=== PATIENT | female | born 1955 | race American Indian/Alaskan Native ===

== ENCOUNTER 2017-02-23 09:23 | Observation (INO) | payer OTHER ==
--- NOTE | 2017-02-23 10:58 | ED PDOC ---
HPI: General Adult Time Seen by Provider: 02/23/17 09:59 Chief Complaint (Nursing): Back Pain Chief Complaint (Provider): left chest pain History Per: Patient History/Exam Limitations: no limitations Onset/Duration Of Symptoms: Days (1), Gradual Current Symptoms Are (Timing): Still Present Severity: Moderate Location Of Discomfort (Image): 1 - ache Quality: "ache" Recent Trauma: none Additional Complaint(s): 61yo female presents c/o left sided chest/breast pain radiating to left neck, shoulder and back. Started last night, took ASA without relief. Denies associated symptoms of SOB, dizziness, headache or syncope. Denies prior cardiac problems, states has not has a stress test. Past Medical History Reviewed: Historical Data, Nursing Documentation, Vital Signs Vital Signs: Last Vital Signs Temp 97.7 F 02/23/17 12:35 Pulse 63 02/23/17 12:35 Resp 16 02/23/17 12:35 BP 137/86 02/23/17 12:35 Pulse Ox 98 02/23/17 12:35 - Medical History PMH: HTN, Hypercholesterolemia - Surgical History Surgical History: Other surgeries: hysterectomy - Family History Family History: States: Unknown Family Hx - Living Arrangements Living Arrangements: With Family - Social History Current smoker - smoking cessation education provided: No - Home Medications Home Medications: Ambulatory Orders Medication Instructions Recorded Atenolol/Chlorthalidone 1 tab PO DAILY 03/27/15 [Atenolol/Chlorthalidone 50 mg-25 mg] Atorvastatin [Lipitor] 10 mg PO DAILY 03/27/15 Albuterol HFA [Ventolin HFA 90 3 puff INH BID 02/23/17 mcg/actuation (8 g)] amLODIPine [Norvasc] 10 mg PO DAILY 02/23/17 - Allergies Allergies/Adverse Reactions: Allergies Allergy/AdvReac Type Severity Reaction Status Date / Time No Known Allergies Allergy Verified 02/23/17 09:53 Review of Systems ROS Statement: Except As Marked, All Systems Reviewed And Found Negative Constitutional: Negative for: Fever, Chills ENT: Negative for: Ear Discharge, Nose Pain Cardiovascular: Positive for: Chest Pain. Negative for: Palpitations, Orthopnea , Edema, Light Headedness Respiratory: Negative for: Cough, Shortness of Breath Gastrointestinal: Negative for: Nausea, Vomiting Genitourinary Female: Negative for: Dysuria, Frequency Musculoskeletal: Positive for: Neck Pain, Shoulder Pain, Back Pain. Negative for: Arm Pain, Hand Pain, Leg Pain Skin: Negative for: Rash, Lesions, Jaundice Neurological: Negative for: Weakness, Numbness, Confusion, Headache Psych: Negative for: Anxiety Physical Exam - Reviewed Nursing Documentation Reviewed: Yes Vital Signs Reviewed: Yes - Physical Exam Appears: Positive for: Well, Non-toxic, No Acute Distress Head Exam: Positive for: ATRAUMATIC, NORMAL INSPECTION, NORMOCEPHALIC Skin: Positive for: Normal Color, Warm, DRY Eye Exam: Positive for: EOMI, Normal appearance, PERRL ENT: Positive for: Normal ENT Inspection Neck: Positive for: Normal, Painless ROM Cardiovascular/Chest: Positive for: Regular Rate, Rhythm Respiratory: Positive for: CNT, Normal Breath Sounds Gastrointestinal/Abdominal: Positive for: Normal Exam, Bowel Sounds, Soft Back: Positive for: Normal Inspection Extremity: Positive for: Normal ROM Neurologic/Psych: Positive for: Alert, Oriented - Laboratory Results Result Diagrams: 02/23/17 11:18 02/23/17 11:18 - ECG ECG: Positive for: Interpreted By Me ECG Rhythm: Positive for: Sinus Rhythm, Nonspecific Changes Interpretation Of ECG: low voltages Rate: 62 O2 Sat by Pulse Oximetry: 98 Pulse Ox Interpretation: Normal - Radiology X-Ray: Read By Radiologist X-Ray Interpretation: COPD, Other (CM) Medical Decision Making Medical Decision Making: Workup initiated for atypical chest pain in obese postmenopausal female with HTN and dyslipidemia. Refused ASA as she took at home this morning. labs reviewed, mild hypokalemia, K+ replaced. trop neg Given CXR findings of CM, atypical symptoms in female w multiple risk factors for CAD, admit tele obs Dr Méndez covering Dr Elijah Villegas Disposition - Clinical Impression Clinical Impression: Chest pain - Patient ED Disposition Is Patient to be Admitted: Yes Counseled Patient/Family Regarding: Studies Performed, Need For Followup - Disposition Disposition Time: 12:45 Condition: STABLE - Pt Status Changed To: Hospital Disposition Of: Observation - POA Present On Arrival: None
--- NOTE | 2017-02-23 11:24 | RAD ---
HISTORY: Chest pain COMPARISON: No prior. FINDINGS: LUNGS: The lungs are hyperinflated and there is peribronchial thickening with chronic changes in both lungs. There is no focal consolidation. PLEURA: No significant pleural effusion identified, no pneumothorax apparent. CARDIOVASCULAR: Normal. OSSEOUS STRUCTURES: No significant abnormalities. VISUALIZED UPPER ABDOMEN: Normal. OTHER FINDINGS: None. IMPRESSION: No active pulmonary disease. COPD.
[2017-02-23 11:30] LABS: BASO % 0.5 % (0.0-2.0); EOS # 0.3 K/uL (0.0-0.7); EOS % 4.4 % (0.0-4.0); HEMATOCRIT 39.3 % (34.0-47.0); LYMPH # 2.8 K/uL (1.0-4.3); LYMPH % 36.8 % (20.0-40.0); MEAN CELL VOLUME 90.4 fl (81.0-99.0); MEAN CORPUSCULAR HEMOGLOBIN 30.5 pg (27.0-31.0); MEAN CORPUSCULAR HGB CONC 33.7 g/dL (33.0-37.0); MEAN PLATELET VOLUME 9.7 fl (7.2-11.7); MONO # 0.5 K/uL (0.0-0.8); MONO % 6.8 % (0.0-10.0); NEUT % 51.5 % (50.0-75.0); NRBC % 0.1 % (0.0-0.0); RED CELL DISTRIBUTION WIDTH 13.4 % (11.5-14.5); WHITE BLOOD COUNT 7.7 K/uL (4.8-10.8)
[2017-02-23 11:44] LABS: PARTIAL THROMBOPLASTIN TIME 28.9 SECONDS (23.3-32.5)
[2017-02-23 11:53] LABS: CHLORIDE 97 mmol/L (98-107); POTASSIUM 3.1 MMOL/L (3.6-5.0); SODIUM 140 mmol/l (132-148)
[2017-02-23 11:56] LABS: ALKALINE PHOSPHATASE 61 U/L (38-126); ALT/SGPT 18 U/L (9-52); AST/SGOT 27 U/L (14-36); BILIRUBIN,TOTAL 0.8 mg/dl (0.2-1.3); BLOOD UREA NITROGEN 16 mg/dl (7-17); CALCIUM 9.1 mg/dL (8.4-10.2); CARBON DIOXIDE 34 mmol/L (22-30); GFR AFRICAN-AMERICAN > 60; GLUCOSE,RANDOM 125 mg/dL (65-105); TOTAL PROTEIN 7.4 G/DL (6.3-8.2)
[2017-02-23] MEDS ORDERED: Potassium Chloride 20 mEq ER Tab PO ONE ×2 (12:51→13:45)
--- NOTE | 2017-02-23 17:26 | CP.PCM.HP ---
History of Present Illness - History of Present Illness History of Present Illness: 61F p/w acute onset LEFT posterior back pain that radiated to base of neck and into LEFT arm since last night. Pt states it began after lifting heavy bag from neighbor's house 4/5 in the evening, she took aspirin with good pain relief and denies any associated SOB, nausea, dizziness, chest pain, diaphoresis. She was able to sleep but was concerned this morning that the pain "was back" again without any other associated symptoms. She denies any viral prodrome symptoms of cough, sore throat, sick contacts, fevers, chills, or diarrhea. In addition, denies decreasing exercise tolerance, orthopnea, change in lower extremity swelling Of note, she has had PCI in the past ~2000 - 2001, with negative findings. PMD: Dr Ko PMH: HTN, HLD, BENJAMÍN, Morbid Obesity PSH: AZEEM, C-sxn x2, LEFT knee ALL: None Meds: Please see Med Rec Present on Admission - Present on Admission Any Indicators Present on Admission: No Review of Systems - Review of Systems Review of Systems: As per HPI Past Patient History - Past Social History Smoking Status: Former Smoker - CARDIAC Hx Cardiac Disorders: Yes (HTN) - PSYCHIATRIC Hx Substance Use: No - SURGICAL HISTORY Hx Section: Yes (x2) Hx Hysterectomy: Yes (total) Other/Comment: Right knee surgery (arthroscopy). left leg sx. - ANESTHESIA Hx Anesthesia: Yes Hx Anesthesia Reactions: No Meds Allergies/Adverse Reactions: Allergies Allergy/AdvReac Type Severity Reaction Status Date / Time No Known Allergies Allergy Verified 02/23/17 09:53 Physical Exam - Constitutional Appears: Well, Non-toxic, No Acute Distress - Head Exam Head Exam: ATRAUMATIC, NORMAL INSPECTION - Eye Exam Eye Exam: EOMI, Normal appearance - ENT Exam ENT Exam: Mucous Membranes Moist, Normal Exam - Neck Exam Neck exam: Positive for: Full Rom, Normal Inspection. Negative for: Lymphadenopathy - Respiratory Exam Respiratory Exam: Clear to Auscultation Bilateral, NORMAL BREATHING PATTERN. absent: Wheezes - Cardiovascular Exam Cardiovascular Exam: REGULAR RHYTHM. absent: JVD - GI/Abdominal Exam GI & Abdominal Exam: Normal Bowel Sounds, Soft. absent: Tenderness - Extremities Exam Extremities exam: Positive for: normal capillary refill, pedal pulses present. Negative for: calf tenderness - Back Exam Back exam: paraspinal tenderness (At LEFT upper back when palpated across trapezius c/w mild muscle spasm) - Neurological Exam Neurological exam: Alert, Oriented x3 - Psychiatric Exam Psychiatric exam: Normal Affect, Normal Mood - Skin Skin Exam: Normal Color, Warm Results - Vital Signs Recent Vital Signs: Last Vital Signs Temp 36.5 C 02/23/17 16:08 Pulse 68 02/23/17 16:08 Resp 20 02/23/17 16:08 BP 172/85 H 02/23/17 16:08 Pulse Ox 99 02/23/17 16:08 - Labs Result Diagrams: 02/23/17 11:18 02/23/17 19:00 Assessment & Plan (1) Chest pain Assessment and Plan: Rule out ACS, but history and symptoms most c/w MSK vs atypical chest pain. EKG w/o acute changes, Troponins negative thus far. - Serial Troponins - ASA 81mg, PO, Daily - CXR 2-view in AM - c/w Statin - c/w BP medications - Echo results: Nml LV function, EF: 65-70%, LEFT atrium mild dilated, trace MR , mild TR - Repeat Potassium - Heart Healthy Diet Status: Acute (2) Hypokalemia Assessment and Plan: Likely secondary to diuretic. - Repeat 3.4 - KCl, 40mEQ, soln, x1 - Rpt in AM Status: Acute (3) DVT prophylaxis Assessment and Plan: Risk: 5 Lovenox 40mg, SC, qHS Status: Acute (4) Hypertension Assessment and Plan: c/w home medications Status: Chronic (5) Hypercholesteremia Assessment and Plan: c/w home medications Status: Chronic (6) Morbidly obese Assessment and Plan: Patient counseled on effect of weight for cardiovascular and respiratory function. - Increase Lovenox Status: Chronic (7) BENJAMÍN (obstructive sleep apnea) Assessment and Plan: Does not use CPAP. Status: Chronic
[2017-02-23] MEDS: Albuterol HFA 90 mcg/actuation (8 g) INH SCH (18:20)
--- NOTE | 2017-02-23 18:47 | CARD ---
APPROVED REPORT EXAM: Two-dimensional and M-mode echocardiogram with Doppler and color Doppler. Other Information Quality : GoodRhythm : NSR Technically limited study due to body habitus. INDICATION Cardiomegaly 2D DIMENSIONS IVSd1.26 (0.7-1.1cm)LVDd4.43 (3.9-5.9cm) LVOT Diameter2.13 (1.8-2.4cm)PWd0.80 (0.7-1.1cm) IVSs1.67 (0.8-1.2cm)LVDs2.78 (2.5-4.0cm) FS (%) 37.3 %PWs1.61 (0.8-1.2cm) M-Mode DIMENSIONS Left Atrium (MM)5.17 (2.5-4.0cm)IVSd0.93 (0.7-1.1cm) Aortic Root2.97 (2.2-3.7cm)LVDd6.25 (4.0-5.6cm) Aortic Cusp Exc.2.28 (1.5-2.0cm)PWd0.85 (0.7-1.1cm) IVSs1.93 cmFS (%) 56 % LVDs2.74 (2.0-3.8cm)PWs1.43 cm Mitral Valve MV E Uocjsaet01.8cm/sMV DECEL [id number] A Qzzqyjit72.0cm/s MV NJB13xwG/A ratio1.0MVA (PHT)3.66cm2 TDI E/Lateral E'0.0E/Medial E'0.0 LEFT VENTRICLE The left ventricle is normal size. There is normal left ventricular wall thickness. The left ventricular function is normal. The left ventricular ejection fraction is - 65-70%.. There is normal LV segmental wall motion. Transmitral Doppler flow pattern is abnormal. No left ventricle thrombus noted on this study. There is no ventricular septal defect visualized. There is no left ventricular aneurysm. There is no mass noted in the left ventricle. RIGHT VENTRICLE The right ventricle is normal size. There is normal right ventricular wall thickness. The right ventricular systolic function is normal. ATRIA The left atrium is mildly dilated. There is no thrombus suspected in the left atrium. The right atrium size is normal. The interatrial septum is intact with no evidence for an atrial septal defect. AORTIC VALVE The aortic valve is normal in structure and function. No aortic regurgitation is present. There is no aortic valvular stenosis. MITRAL VALVE The mitral valve is normal in structure and function. There is no evidence of mitral valve prolapse. There is no mitral valve stenosis. Mitral regurgitation is trace. TRICUSPID VALVE The tricuspid valve is normal in structure and function. There is mild tricuspid regurgitation. There is no tricuspid valve prolapse or vegetation. There is no tricuspid valve stenosis. PULMONIC VALVE The pulmonic valve is not well visualized. There is no pulmonic valvular regurgitation. GREAT VESSELS The aortic root is normal in size. The IVC is normal in size and collapses >50% with inspiration. PERICARDIAL EFFUSION small anterior echo free space There is no pleural effusion. <Conclusion> The study is of suboptimal quality. The left ventricle is normal in size and wall thickness. The left ventricular function is normal with a LVEF of - 65-70%. The left atrium is mildly dilated. The mitral, aortic and tricuspid valves are normal. There is trace mitral regurgitation and mild tricuspid regurgitation.
--- NOTE | 2017-02-23 19:03 | CARD ---
APPROVED REPORT EKG Measurement Heart [id number] AK [id number] [id number] <Conclusion> Normal sinus rhythm Low voltage QRS Borderline ECG
[2017-02-23 19:23] VITALS: RESP 20
[2017-02-23] MEDS ORDERED: Potassium Chloride 20 mEq/15 ml LIQ UD PO ONE (21:00)
[2017-02-23] MEDS ORDERED: Enoxaparin 40 mg Syringe SC SCH (22:00)
[2017-02-24 07:23] LABS: BASO % 0.4 % (0.0-2.0); EOS # 0.3 K/uL (0.0-0.7); EOS % 4.3 % (0.0-4.0); HEMATOCRIT 37.6 % (34.0-47.0); LYMPH # 3.5 K/uL (1.0-4.3); LYMPH % 43.5 % (20.0-40.0); MEAN CELL VOLUME 91.1 fl (81.0-99.0); MEAN CORPUSCULAR HEMOGLOBIN 30.6 pg (27.0-31.0); MEAN CORPUSCULAR HGB CONC 33.6 g/dL (33.0-37.0); MEAN PLATELET VOLUME 9.2 fl (7.2-11.7); MONO # 0.5 K/uL (0.0-0.8); MONO % 6.4 % (0.0-10.0); NEUT # 3.7 K/uL (1.8-7.0); NEUT % 45.4 % (50.0-75.0); NRBC % 0.1 % (0.0-0.0); RED CELL DISTRIBUTION WIDTH 13.4 % (11.5-14.5); WHITE BLOOD COUNT 8.1 K/uL (4.8-10.8)
[2017-02-24 07:35] LABS: BLOOD UREA NITROGEN 12 mg/dl (7-17); CARBON DIOXIDE 30 mmol/L (22-30); CHLORIDE 101 mmol/L (98-107); CHOLESTEROL 173 mg/dL (0-199); GFR AFRICAN-AMERICAN > 60; GLUCOSE,RANDOM 102 mg/dL (65-105); MAGNESIUM 1.3 MG/DL (1.6-2.3); POTASSIUM 3.3 MMOL/L (3.6-5.0); SODIUM 144 mmol/l (132-148)
[2017-02-24 08:37] VITALS: BP 128/76; PULSE 63; TEMP 97.8; O2SAT 96
[2017-02-24] MEDS ORDERED: Potassium Chloride 20 mEq/15 ml LIQ UD PO ONE (08:51)
[2017-02-24] MEDS ORDERED: Patient's Own Med (Atenolol/Chlorthalidone [Atenolol-Chlorthalidone 50-25] 1 TAB) PO SCH (09:00)
[2017-02-24] MEDS ORDERED: Enoxaparin 40 mg Syringe SC SCH (09:00)
[2017-02-24] MEDS: Albuterol HFA 90 mcg/actuation (8 g) INH SCH (09:17)
--- NOTE | 2017-02-24 11:06 | RAD ---
HISTORY: Cough COMPARISON: 02/23/2017 TECHNIQUE: Chest PA and lateral FINDINGS: LUNGS: The lungs are well inflated and clear. PLEURA: No significant pleural effusion identified. No pneumothorax apparent. CARDIOVASCULAR: Normal. OSSEOUS STRUCTURES: No significant abnormalities. VISUALIZED UPPER ABDOMEN: Normal. OTHER FINDINGS: None. IMPRESSION: No active pulmonary disease.
--- NOTE | 2017-02-24 14:25 | CP.PCM.DIS ---
Provider - Provider Date of Admission: 02/23/17 13:52 Attending physician: Hernandez Méndez MD Time Spent in preparation of Discharge (in minutes): 45 Diagnosis - Discharge Diagnosis (1) Chest pain Status: Acute Comment: ACS ruled out, c/w MSK. - c/w ASA 81mg, PO, Daily. - CXR 2-view in AM. - Needs Stress Test as outpatient (2) Hypokalemia Status: Acute Comment: Repleted (3) Hypertension Status: Chronic Comment: c/w home medications. Added KCl, PO supplementation to offset loss from diuretic (4) Hypercholesteremia Status: Chronic (5) Morbidly obese Status: Chronic (6) BENJAMÍN (obstructive sleep apnea) Status: Chronic Comment: f/u with PMD [facility] Course - Lab Results Lab Results: Most Recent Lab Values WBC 8.1 K/uL (4.8-10.8) 02/24/17 05:30 RBC 4.13 Mil/uL (3.80-5.20) 02/24/17 05:30 Hgb 12.6 g/dL (12.0-16.0) 02/24/17 05:30 Hct 37.6 % (34.0-47.0) 02/24/17 05:30 MCV 91.1 fl (81.0-99.0) 02/24/17 05:30 MCH 30.6 pg (27.0-31.0) 02/24/17 05:30 MCHC 33.6 g/dL (33.0-37.0) 02/24/17 05:30 RDW 13.4 % (11.5-14.5) 02/24/17 05:30 Plt Count 211 K/uL (130-400) 02/24/17 05:30 MPV 9.2 fl (7.2-11.7) 02/24/17 05:30 Neut % (Auto) 45.4 % (50.0-75.0) L 02/24/17 05:30 Lymph % (Auto) 43.5 % (20.0-40.0) H 02/24/17 05:30 Polk % (Auto) 6.4 % (0.0-10.0) 02/24/17 05:30 Eos % (Auto) 4.3 % (0.0-4.0) H 02/24/17 05:30 Baso % (Auto) 0.4 % (0.0-2.0) 02/24/17 05:30 Neut # 3.7 K/uL (1.8-7.0) 02/24/17 05:30 Lymph # 3.5 K/uL (1.0-4.3) 02/24/17 05:30 Polk # 0.5 K/uL (0.0-0.8) 02/24/17 05:30 Eos # 0.3 K/uL (0.0-0.7) 02/24/17 05:30 Baso # 0.0 K/uL (0.0-0.2) 02/24/17 05:30 PT 10.6 SECONDS (9.6-11.2) 02/23/17 11:18 INR 1.02 (0.92-1.08) 02/23/17 11:18 APTT 28.9 SECONDS (23.3-32.5) 02/23/17 11:18 Sodium 144 mmol/l (132-148) 02/24/17 05:30 Potassium 3.3 MMOL/L (3.6-5.0) L 02/24/17 05:30 Chloride 101 mmol/L (98-107) 02/24/17 05:30 Carbon Dioxide 30 mmol/L (22-30) 02/24/17 05:30 Anion Gap 16 (10-20) 02/24/17 05:30 BUN 12 mg/dl (7-17) 02/24/17 05:30 Creatinine 0.7 mg/dL (0.7-1.2) 02/24/17 05:30 Est GFR ( Amer) > 60 02/24/17 05:30 Est GFR (Non-Af Amer) > 60 02/24/17 05:30 Random Glucose 102 mg/dL (65-105) 02/24/17 05:30 Calcium 9.0 mg/dL (8.4-10.2) 02/24/17 05:30 Magnesium 1.3 MG/DL (1.6-2.3) L 02/24/17 05:30 Total Bilirubin 0.8 mg/dl (0.2-1.3) 02/23/17 11:18 AST 27 U/L (14-36) 02/23/17 11:18 ALT 18 U/L (9-52) 02/23/17 11:18 Alkaline Phosphatase 61 U/L (38-126) 02/23/17 11:18 Troponin I < 0.0120 ng/mL (0.00-0.120) 02/24/17 05:30 Total Protein 7.4 G/DL (6.3-8.2) 02/23/17 11:18 Albumin 3.8 g/dL (3.5-5.0) 02/23/17 11:18 Globulin 3.6 gm/dL (2.2-3.9) 02/23/17 11:18 Albumin/Globulin Ratio 1.0 (1.0-2.1) 02/23/17 11:18 Triglycerides 215 mg/DL (0-149) H 02/24/17 05:30 Cholesterol 173 mg/dL (0-199) 02/24/17 05:30 LDL Cholesterol Direct 94 mg/dL (0-129) 02/24/17 05:30 HDL Cholesterol 32 MG/DL (30-70) 02/24/17 05:30 - Hospital Course Hospital Course: 61F admitted for rule out ACS, atypical chest pain. Troponins/EKG negative, echocardiography shows LA dilation/preserved systolic function, no overnight events. She is stable for outpatient follow up for stress testing. Discharge Exam - Head Exam Head Exam: ATRAUMATIC, NORMAL INSPECTION - Eye Exam Eye Exam: EOMI, Normal appearance - ENT Exam ENT Exam: Mucous Membranes Moist, Normal Exam - Neck Exam Neck exam: Full Rom, Normal Inspection - Respiratory Exam Respiratory Exam: Clear to PA & Lateral, NORMAL BREATHING PATTERN. absent: Rales, Wheezes - Cardiovascular Exam Cardiovascular Exam: REGULAR RHYTHM. absent: JVD - GI/Abdominal Exam GI & Abdominal Exam: Normal Bowel Sounds, Soft. absent: Tenderness - Extremities Exam Extremities exam: full ROM, normal capillary refill, pedal edema (trace) - Back Exam Back exam: NORMAL INSPECTION, paraspinal tenderness (again LEFT trapezius ttp across LEFT scapular extending into base of neck) - Neurological Exam Neurological exam: Alert, Oriented x3 - Psychiatric Exam Psychiatric exam: Normal Affect, Normal Mood - Skin Skin Exam: Normal Color, Warm Discharge Plan - Discharge Medications Prescriptions: Potassium Chloride [K-Dur 20] 20 meq PO DAILY #7 tab - Follow Up Plan Condition: GOOD Disposition: HOME/ ROUTINE Instructions: Chest Pain (DC) Additional Instructions: f/u with Dr Lockwood w/i 1 week Cardiac stress testing as outpatient f/u BENJAMÍN work up
[2017-02-25] MEDS ORDERED: Potassium Chloride 20 mEq ER Tab PO SCH (09:00)
== END 2017-02-24 14:50 | disposition home or self-care (01) ==
LOC: H.ER 09:23 → H.ERHOLD 13:52 → H.TEL 15:36
PROVIDERS: ADMIT Family Medicine; ATTEND Family Medicine
DX: R07.89 Other chest pain (principal); E66.01 Morbid (severe) obesity due to excess calories; Z68.42 Body mass index [BMI] 45.0-49.9, adult; E78.00 Pure hypercholesterolemia, unspecified; E78.5 Hyperlipidemia, unspecified; E87.6 Hypokalemia; G47.33 Obstructive sleep apnea (adult) (pediatric); I10 Essential (primary) hypertension; N95.9 Unspecified menopausal and perimenopausal disorder

== ENCOUNTER 2017-06-17 22:54 | Emergency (ER) | payer OTHER ==
[2017-06-17 23:06] VITALS: TEMP 98.7
[2017-06-17] MEDS ORDERED: Lidocaine/Epi 1% 1:100000 20 ML IJ ONE (23:14)
[2017-06-17] MEDS ORDERED: Lidocaine 1% w Epi 1:100,000 Inj ONE (23:22)
--- NOTE | 2017-06-17 23:54 | ED PDOC ---
HPI: General Adult Time Seen by Provider: 06/17/17 23:08 Chief Complaint (Nursing): Abnormal Skin Integrity Chief Complaint (Provider): Abnormal Ski integrity History Per: Patient History/Exam Limitations: no limitations Onset/Duration Of Symptoms: Days (x1 week) Current Symptoms Are (Timing): Still Present Additional Complaint(s): Asuncion Goyal presents to the ED for a chief complaint of left buttocks pain and swelling. Of note, patient applied ointment on to an abscess on left butt which opened up and gave her some relief. Associated symptoms include a subjective fever and chills that she experienced at home with some associated nausea yesterday. PMD: DR. Maikel Agudelo Past Medical History Reviewed: Historical Data, Nursing Documentation, Vital Signs Vital Signs: Last Vital Signs Temp 98.7 F 06/17/17 23:02 Pulse 88 06/17/17 23:02 Resp 18 06/17/17 23:02 BP 136/77 06/17/17 23:02 Pulse Ox 98 06/18/17 00:09 - Medical History PMH: Asthma, HTN, Hypercholesterolemia Denies: HIV, Chronic Kidney Disease - Surgical History Surgical History: - Family History Family History: States: Unknown Family Hx - Home Medications Home Medications: Ambulatory Orders Medication Instructions Recorded Atenolol/Chlorthalidone 1 tab PO DAILY 03/27/15 [Atenolol-Chlorthalidone 50-25] Atorvastatin [Lipitor] 10 mg PO DAILY 03/27/15 Albuterol HFA [Ventolin HFA 90 3 puff INH BID 02/23/17 mcg/actuation (8 g)] amLODIPine [Norvasc] 10 mg PO DAILY 02/23/17 Potassium Chloride [K-Dur 20] 20 meq PO DAILY #7 tab 02/24/17 Clindamycin [Cleocin] 300 mg PO TID 10 Days 06/17/17 - Allergies Allergies/Adverse Reactions: Allergies Allergy/AdvReac Type Severity Reaction Status Date / Time No Known Allergies Allergy Verified 06/17/17 23:06 Review of Systems ROS Statement: Except As Marked, All Systems Reviewed And Found Negative Constitutional: Positive for: Fever (Subjective fever), Chills Gastrointestinal: Positive for: Nausea (Experienced some nausea yesterday) Musculoskeletal: Positive for: Other (Left buttocks pain and swelling.) Skin: Positive for: Other (Abscess on left buttocks.) Physical Exam - Reviewed Nursing Documentation Reviewed: Yes Vital Signs Reviewed: Yes - Physical Exam Appears: Positive for: Well, Non-toxic, No Acute Distress Head Exam: Positive for: ATRAUMATIC, NORMAL INSPECTION, NORMOCEPHALIC Skin: Negative for: Normal Color (3 by 3 cm fluctuant abscess on the left buttox with surrounding erythema thats already began to drain.) Eye Exam: Positive for: Normal appearance, EOMI, PERRL ENT: Positive for: Normal ENT Inspection Neck: Positive for: Normal, Painless ROM, Supple Cardiovascular/Chest: Positive for: Regular Rate, Rhythm. Negative for: Murmur , Tachycardia Respiratory: Positive for: Normal Breath Sounds. Negative for: Wheezing, Respiratory Distress Gastrointestinal/Abdominal: Positive for: Normal Exam, Soft. Negative for: Tenderness Back: Positive for: Normal Inspection Rectal: Positive for: Deferred Extremity: Positive for: Normal ROM Lymphatic: Positive for: Deferred Neurologic/Psych: Positive for: Alert, Oriented - ECG O2 Sat by Pulse Oximetry: 98 (RA) Pulse Ox Interpretation: Normal Medical Decision Making Medical Decision Making: Time: 2307: Initial Impression: Abscess with cellulitis. Initial Plan: * Patient discharged home with antibiotics. Scribe Attestation: Documented by Emory Mejia acting as a scribe for Ignacio Lynn MD. Provider Scribe Attestation: All medical record entries made by the Scribe were at my direction and personally dictated by me. I have reviewed the chart and agree that the record accurately reflects my personal performance of the history, physical exam, medical decision making, and the department course for this patient. I have also personally directed, reviewed, and agree with the discharge instructions and disposition. Procedures - Time-Out Type of Procedure: I&D Correct Patient (with visual ID + MR# on ID Band): Yes Correct Procedure: Yes - Incision and Drainage Site: buttock, L cheek Blade Size: 11 I & D Procedure: betadine prep, sterile drapes applied Progress: Used Nitrous Oxide while patient was connected to continuous pulse ox Used Lidocaine 1% w/ epi to anesthetize area 5cc's of pus expectorated with some blood (area was already draining significantly) Patient tolerated procedure well O2 via facemask applied post nitrous for washout Disposition - Clinical Impression Clinical Impression: Abscess - Disposition Referrals: Maikel Agudelo MD [Family Provider] - Disposition: Routine/Home Disposition Time: 23:50 Condition: STABLE Prescriptions: Clindamycin [Cleocin] 300 mg PO TID 10 Days Instructions: Cellulitis (ED), Abscess Incision and Drainage (ED), Abscess (ED) Forms: [employer] ([place])
[2017-06-18 00:36] VITALS: BP 131/73; PULSE 86; RESP 17; O2SAT 99
== END 2017-06-18 00:11 | disposition home or self-care (01) ==
LOC: H.ER 22:54
DX: L02.31 Cutaneous abscess of buttock (principal)

== ENCOUNTER 2018-04-26 13:18 | Emergency (ER) | payer MEDICARE, OTHER ==
[2018-04-26 13:29] VITALS: RESP 16; O2SAT 100
[2018-04-26] MEDS ORDERED: Albuterol-Ipratrop 3 mg / 0.5 (3 ml) UD INH STA (14:16)
--- NOTE | 2018-04-26 14:19 | ED PDOC ---
HPI: General Adult Time Seen by Provider: 04/26/18 14:17 Chief Complaint (Nursing): Cough, Cold, Congestion Chief Complaint (Provider): COUGH History Per: Patient (63 Y/O FEMALE HERE WITH COUGH X 1 MONTH NOTED ON AND OFF. STATES SHE HAS H/O ASTHMA USUALLY WORSE IN WINTER. DENIES ANY SEASONAL ALLERGIES. DENIES ANY FEVERS/CHILLS. NOTES MILD URI. DENIES ANY NEW MEDICATIONS.) Past Medical History Reviewed: Historical Data, Nursing Documentation, Vital Signs Vital Signs: Last Vital Signs Temp 98.9 F 04/26/18 13:22 Pulse 78 04/26/18 13:22 Resp 16 04/26/18 13:22 BP 166/100 H 04/26/18 13:22 Pulse Ox 100 04/26/18 14:19 - Medical History PMH: Asthma, HTN, Hypercholesterolemia Denies: HIV, Chronic Kidney Disease - Surgical History Surgical History: - Family History Family History: States: Unknown Family Hx - Home Medications Home Medications: Ambulatory Orders Medication Instructions Recorded Atenolol/Chlorthalidone 1 tab PO DAILY 03/27/15 [Atenolol-Chlorthalidone 50-25] Atorvastatin [Lipitor] 10 mg PO DAILY 03/27/15 Albuterol HFA [Ventolin HFA 90 3 puff INH BID 02/23/17 mcg/actuation (8 g)] amLODIPine [Norvasc] 10 mg PO DAILY 02/23/17 Potassium Chloride [K-Dur 20] 20 meq PO DAILY #7 tab 02/24/17 Clindamycin [Cleocin] 300 mg PO TID 10 Days cap 06/17/17 Albuterol 0.083% [Albuterol 0.083% 2.5 mg IH Q8 PRN #100 neb 04/26/18 Inhal Deanne (2.5 mg/3 ml) UD] Mask, Face [Nebulizer Aerosol Mask 1 dev XX PRN PRN #1 dev 04/26/18 Adult] Nebulizer [Aeroeclipse II] 1 each MC Q8 PRN #1 each 04/26/18 predniSONE [predniSONE Tab] 3 tab PO DAILY #15 tab 04/26/18 - Allergies Allergies/Adverse Reactions: Allergies Allergy/AdvReac Type Severity Reaction Status Date / Time No Known Allergies Allergy Verified 06/17/17 23:06 Review of Systems ROS Statement: Except As Marked, All Systems Reviewed And Found Negative Respiratory: Positive for: Cough Physical Exam - Reviewed Nursing Documentation Reviewed: Yes Vital Signs Reviewed: Yes - Physical Exam Appears: Positive for: Well, Non-toxic, No Acute Distress Head Exam: Positive for: ATRAUMATIC, NORMAL INSPECTION, NORMOCEPHALIC Skin: Positive for: Normal Color, Warm, DRY Eye Exam: Positive for: EOMI, Normal appearance, PERRL ENT: Positive for: Normal ENT Inspection Neck: Positive for: Normal, Painless ROM Cardiovascular/Chest: Positive for: Regular Rate, Rhythm Respiratory: Positive for: Normal Breath Sounds, Decreased Breath Sounds Gastrointestinal/Abdominal: Positive for: Normal Exam, Soft Back: Positive for: Normal Inspection Extremity: Positive for: Normal ROM Neurologic/Psych: Positive for: Alert, Oriented - ECG O2 Sat by Pulse Oximetry: 100 - Progress ED Course And Treament: DUONEB X 1 DOSE cxr: nad Lungs noted improved aeration. Disposition - Clinical Impression Clinical Impression: Cough, Asthma - Patient ED Disposition Is Patient to be Admitted: No - Disposition Disposition: Routine/Home Disposition Time: 15:28 Condition: FAIR Prescriptions: Albuterol 0.083% [Albuterol 0.083% Inhal Deanne (2.5 mg/3 ml) UD] 2.5 mg IH Q8 PRN #100 neb PRN Reason: Shortness Of Breath Mask, Face [Nebulizer Aerosol Mask Adult] 1 dev XX PRN PRN #1 dev PRN Reason: Shortness Of Breath Nebulizer [Aeroeclipse II] 1 each MC Q8 PRN #1 each PRN Reason: Shortness Of Breath predniSONE [predniSONE Tab] 3 tab PO DAILY #15 tab Instructions: Cough in Adults, Asthma in Adults Forms: [facility] ([employer])
[2018-04-26] MEDS ORDERED: Albuterol-Ipratrop 3 mg / 0.5 (3 ml) UD ONE (14:28)
--- NOTE | 2018-04-26 15:15 | RAD ---
HISTORY: COUGH COMPARISON: Chest radiograph dated 02/24/2017. TECHNIQUE: Chest PA and lateral FINDINGS: LUNGS: No active pulmonary disease. PLEURA: No significant pleural effusion identified. No pneumothorax apparent. CARDIOVASCULAR: Atherosclerotic aortic calcifications. Cardiomediastinal silhouette stably enlarged. OSSEOUS STRUCTURES: Unchanged. VISUALIZED UPPER ABDOMEN: Normal. OTHER FINDINGS: None. IMPRESSION: No active disease.
[2018-04-26 15:48] VITALS: BP 145/82; PULSE 81; TEMP 98.2
== END 2018-04-26 15:53 | disposition home or self-care (01) ==
LOC: H.ER 13:18
DX: J45.909 Unspecified asthma, uncomplicated (principal); I10 Essential (primary) hypertension; E78.00 Pure hypercholesterolemia, unspecified

== ENCOUNTER 2019-03-04 20:16 | Emergency (ER) | payer MEDICARE, OTHER ==
[2019-03-04 20:49] VITALS: RESP 18; TEMP 98.1; O2SAT 98
--- NOTE | 2019-03-04 23:54 | ED PDOC ---
HPI: Back Time Seen by Provider: 03/04/19 23:00 Chief Complaint (Nursing): Back Pain Chief Complaint (Provider): Flank Pain/ Back Pain History Per: Patient History/Exam Limitations: no limitations Onset/Duration Of Symptoms: Days Current Symptoms Are (Timing): Still Present Quality Of Discomfort: "Pain" Severity: Moderate Pain Scale Rating Of: 7 Previous Symptoms: Back Pain Associated Symptoms: None Exacerbating Factor(s): Nothing Additional History Per: Patient Additional Complaint(s): 63 year old female with history of HTN and high cholesterol presents to the ED c/o left flank pain rad to mid back, pain states pain started 3 days ago, burning in nature. Patient states she took advil at home with minimal relief last dose was earlier this afternoon. Patient states she became concerned when pain did not improve with advil. Patient states she does not recall what she was doing when pain started. She denies any aggravating pain, nothing improves pain. Patient denies chest pain, nausea, vomiting, sob, denies recent illness. - Risk Factors AAA Risk Factors: Pos: Older Than 49 Years Of Age, Hypertension Past Medical History Vital Signs: Last Vital Signs Temp 98.1 F 03/04/19 20:46 Pulse 78 03/04/19 20:46 Resp 18 03/04/19 20:46 BP 178/111 H 03/04/19 20:46 Pulse Ox 98 03/04/19 20:46 - Medical History PMH: Asthma, HTN, Hypercholesterolemia Denies: HIV, Chronic Kidney Disease - Surgical History Surgical History: No Surg Hx, - Family History Family History: States: Unknown Family Hx - Social History Alcohol: None Drugs: Denies - Home Medications Home Medications: Ambulatory Orders Medication Instructions Recorded Atenolol/Chlorthalidone 1 tab PO DAILY 03/27/15 [Atenolol-Chlorthalidone 50-25] Atorvastatin [Lipitor] 10 mg PO DAILY 03/27/15 Albuterol HFA [Ventolin HFA 90 3 puff INH BID 02/23/17 mcg/actuation (8 g)] amLODIPine [Norvasc] 10 mg PO DAILY 02/23/17 Potassium Chloride [K-Dur 20] 20 meq PO DAILY #7 tab 02/24/17 Clindamycin [Cleocin] 300 mg PO TID 10 Days cap 06/17/17 Albuterol 0.083% [Albuterol 0.083% 2.5 mg IH Q8 PRN #100 neb 04/26/18 Inhal Deanne (2.5 mg/3 ml) UD] Mask, Face [Nebulizer Aerosol Mask 1 dev XX PRN PRN #1 dev 04/26/18 Adult] Nebulizer [Aeroeclipse II] 1 each MC Q8 PRN #1 each 04/26/18 predniSONE [predniSONE Tab] 3 tab PO DAILY #15 tab 04/26/18 Cyclobenzaprine [Cyclobenzaprine 10 mg PO Q8H PRN #15 tab 03/05/19 HCl] Ibuprofen [Motrin Tab] 800 mg PO Q8H PRN #30 tab 03/05/19 - Allergies Allergies/Adverse Reactions: Allergies Allergy/AdvReac Type Severity Reaction Status Date / Time acetaminophen [From Percocet] AdvReac VOMITING Verified 03/04/19 20:50 oxycodone [From Percocet] AdvReac VOMITING Verified 03/04/19 20:50 tramadol AdvReac VOMITING Verified 03/04/19 20:50 Review of Systems ROS Statement: Except As Marked, All Systems Reviewed And Found Negative Constitutional: Negative for: Fever, Chills, Sweats, Weakness, Malaise Eyes: Negative for: Pain, Eyelid Inflammation Cardiovascular: Negative for: Chest Pain, Palpitations, Light Headedness Respiratory: Negative for: Cough, Shortness of Breath Gastrointestinal: Negative for: Nausea, Vomiting, Abdominal Pain Genitourinary Female: Negative for: Dysuria, Frequency, Hematuria, Vaginal Discharge, Pelvic Pain Musculoskeletal: Positive for: Back Pain (flank pain rad to mid back ). Negative for: Neck Pain, Shoulder Pain Neurological: Negative for: Weakness, Numbness, Incoordination, Confusion, Seizures, Altered Mental Status Physical Exam - Reviewed Nursing Documentation Reviewed: Yes Vital Signs Reviewed: Yes - Physical Exam Appears: Positive for: Well, Non-toxic, No Acute Distress Head Exam: Positive for: ATRAUMATIC, NORMAL INSPECTION, NORMOCEPHALIC Skin: Positive for: Normal Color, Warm, DRY Eye Exam: Positive for: EOMI, Normal appearance, PERRL ENT: Positive for: Normal ENT Inspection Neck: Positive for: Normal, Painless ROM Cardiovascular/Chest: Positive for: Regular Rate, Rhythm Respiratory: Positive for: CNT, Normal Breath Sounds Pulses-Radial (L): 2+ Pulses-Radial (R): 2+ Gastrointestinal/Abdominal: Positive for: Normal Exam, Soft Back: Positive for: Normal Inspection Extremity: Positive for: Normal ROM Neurological/Psych: Positive for: Awake, Alert, Normal Tone, Oriented - Laboratory Results Urine dip results: Positive for: Blood (trace, lysed blood). Negative for: Leukocyte Esterase, Nitrate, Ketones, Glucose, Bilirubin, Protein - ECG O2 Sat by Pulse Oximetry: 98 - Radiology X-Ray: Viewed By Pr X-Ray Interpretation: No Acute Disease (xray compared to previous imaging, u nchanged. ), Other Medical Decision Making Medical Decision Making: Chest xray Urine Dipstick Toradol 60mg IM 00:00 Patient re-evaluated at this time. Patient states pain has improved. Clinicals findings discussed with patient. No further work up needed in ED. Patient to follow-up with PMD as needed. Rx given for flexeril and motrin PRN. Patient states understanding and agrees with plan. Return to ed precautions given. Disposition - Clinical Impression Clinical Impression: Back pain - Patient ED Disposition Is Patient to be Admitted: No - Disposition Disposition: Routine/Home Disposition Time: 00:09 Condition: GOOD Prescriptions: Cyclobenzaprine [Cyclobenzaprine HCl] 10 mg PO Q8H PRN #15 tab PRN Reason: Muscle Spasm Ibuprofen [Motrin Tab] 800 mg PO Q8H PRN #30 tab PRN Reason: Pain, Moderate (4-7) Instructions: Upper Back Pain (DC) - POA Present On Arrival: None
[2019-03-05 00:24] VITALS: BP 130/79; PULSE 73
--- NOTE | 2019-03-05 08:40 | RAD ---
Date of service: 03/04/2019 HISTORY: upper back pain COMPARISON: Chest radiographs 04/26/2018. TECHNIQUE: Chest PA and lateral views FINDINGS: LUNGS: No active pulmonary disease. PLEURA: No significant pleural effusion identified. No pneumothorax apparent. CARDIOVASCULAR: Calcific atherosclerotic changes are seen related to the thoracic aorta. Mild cardiomegaly noted. No pulmonary vascular congestion. OSSEOUS STRUCTURES: No significant abnormalities. VISUALIZED UPPER ABDOMEN: Normal. OTHER FINDINGS: None. IMPRESSION: Stable mild cardiomegaly. No interval acute cardiopulmonary disease appreciated.
== END 2019-03-05 00:20 | disposition home or self-care (01) ==
LOC: H.ER 20:16
DX: M54.6 Pain in thoracic spine (principal); I10 Essential (primary) hypertension; J45.909 Unspecified asthma, uncomplicated; Z88.8 Allergy status to other drugs, medicaments and biological substances; Z88.5 Allergy status to narcotic agent
CPT/HCPCS: 71046; 96372; 99283; J1885